=== PATIENT | male | born 1945 | race Caucasian/White ===

== ENCOUNTER 2016-12-14 16:40 | Emergency (ER) | payer MEDICARE, BC ==
--- NOTE | ~2016-12-14 | ER ---
ADMIT: 12/14/2016 RM/LOC: ER [facility] MR#: [id number] [address] [id number] [place], [place] [id number] Emergency Room Report SEX: M AGE: 71 : 1945 DATE: 12/14/2016 A 71-year-old gentleman comes to the Emergency Department with several hours worth of neck pain. Of note, he was holding a lawnmower two days prior. He had also seen his chiropractor this past Thursday, where he had "neck manipulation." He also has a history of chronic neck injury and has a TENS unit in place for chronic neck and hip pain. See T-sheet for remainder of history and physical. CT of the head and C-spine were unremarkable. The patient was discharged. DIAGNOSIS: Neck strain and pain. Given prescription for Flexeril. Encouraged to use a heating pad to the area and follow up as needed. Manas Moya MD/ marta JOB #: [id number] CC: Demario Crawford MD, Attending Physician Yassine Martinez MD, Family Physician
[~2016-12-14 16:40] MED LIST: AFRIN-DPS15 ML NS; ANTIVERT12.5 MG PO; ASA CHILDREN'S81 MG PO; BACITRACIN15 G1 TP; CLINDAMYCIN HC150 MG PO; HYDRODIURIL-DPS25 MG PO; MAALOX DPS30 ML PO; NORVASC DPS10 MG PO; PANTOPRAZOLE SO40 MG PO; PERIDEX15 ML PO; PROTONIX40 MG PO; SURFAK DPS240 MG PO; TYLENOL DPS325 MG PO; ULTRAM DPS50 MG PO; VASOTEC DPS10 MG PO
== END 2016-12-14 19:20 | disposition home or self-care (01) ==
LOC: ER 16:40
DX: S16.1XXA Strain of muscle, fascia and tendon at neck level, initial encounter (principal); I10 Essential (primary) hypertension; X50.0XXA Overexertion from strenuous movement or load, initial encounter